=== PATIENT | female | born 1995 | race Two or more races ===

== ENCOUNTER 2016-09-16 13:38 | Observation (INO) | payer MEDICAID ==
[~2016-09-16] VITALS: Ht 170.2 cm; Wt 59.0 kg
[2016-09-16] MEDS ORDERED: SODIUM CHLORIDE 0.9% 1,000 ML IV ONE (15:40)
[2016-09-16] MEDS ORDERED: KETOROLAC TROMETH 30 MG/ML 1ML VIAL IV ONE (15:45)
[2016-09-16 16:05] LABS: Urine Bilirubin Negative (Negative); Urine Blood Negative /uL (Negative); Urine Color Yellow (Yellow); Urine Glucose Normal (Normal); Urine Ketone Negative (Negative); Urine Mucus FEW (None Seen); Urine Nitrite Negative (Negative); Urine RBC <1 /hpf (0 - 4); Urine Squamous Epithelial Cell FEW /hpf (<5); Urine Urobilinogen Normal (Negative)
[2016-09-16 16:17] LABS: Basophils # (auto) 0 uL; Basophils % (auto) 0.7 % (0.0-2.0); Eosinophils # (auto) 0.1 uL; Eosinophils % (auto) 1.5 % (0.0-7.0); Hematocrit 40.9 % (36.0-46.0); Hemoglobin 13.6 g/dL (12.2-16.2); Lymphocytes # (auto) 1.5 uL; Lymphocytes % (auto) 23.2 % (10.0-50.0); Mean Corpuscular Hgb Conc. 33.2 g/dL (32.0-36.0); Mean Corpuscular Volume 87.3 fL (80.0-100.0); Mean Platelet Volume 10.1 fL (7.4-10.4); Monocytes # (auto) 0.3 uL; Monocytes % (auto) 4.7 % (0.0-12.0); Neutrophils # (auto) 4.4 uL; Neutrophils % (auto) 69.9 % (37.0-80.0); Platelet Count (auto) 237 10^3/uL (140-450); Red Cell Distribution Width 13.8 % (11.6-16.0); White Blood Cell 6.3 10^3/uL (4.4-10.8)
[2016-09-16 16:33] LABS: Albumin 3.5 g/dL (3.4-5.0); BUN/Creatinine Ratio 19.7; Calcium 8.2 mg/dL (8.5-10.1); Magnesium 2.2 mg/dL (1.6-2.6); Potassium 3.9 mmol/L (3.5-5.1)
[2016-09-16 16:35] LABS: Bilirubin, Total 0.4 mg/dL (0.2-1.0); Total Protein 7.3 g/dL (6.4-8.2)
[2016-09-16 18:00] VITALS: BP 101/58
== END 2016-09-16 18:58 | disposition home or self-care (01) | DRG 351 ==
LOC: ER 13:38 → EDUNIT# 13:38 → UNDOADMOB 13:39 → TELE 13:39 → ER 18:57 → UNDODISOB 18:58
PROVIDERS: ADMIT Emergency Medicine; ATTEND Emergency Medicine
DX: M25.562 Pain in left knee (principal); F41.1 Generalized anxiety disorder; M25.561 Pain in right knee; R07.9 Chest pain, unspecified; R42 Dizziness and giddiness
CPT/HCPCS: 36415; 80053; 81001; 81025; 83735; 84443; 85025; 85652; 96361; 96374; G0378; J1885